=== PATIENT | female | born 1990 | race Caucasian/White ===

== ENCOUNTER 2017-03-05 13:22 | Outpatient (CLI) | payer OTHER ==
[2017-03-05] MEDS ORDERED: NORMAL SALINE 10 ML SYRINGE FLUSH IVP PRN (14:08)
[2017-03-05 14:30] VITALS: RESP 16; TEMP 98.6
[2017-03-05 14:33] LABS: HEMATOCRIT 41.8 % (37.0-47.0); HEMOGLOBIN 14.2 g/dL (12.0-16.0); MEAN CORPUSCULAR HEMOGLOBIN 31.8 PG (27-31); MEAN CORPUSCULAR VOLUME 93.7 FL (81-99); RED BLOOD COUNT 4.46 10^6/uL (4.20-5.40)
[2017-03-05 14:38] LABS: BLOOD UREA NITROGEN 10 mg/dL (7-22); BUN/CREATININE RATIO 16.66 (6-20); EST GLOMERULAR FILTRATION > 60 (>60 ml/min/1.73m(2)); SERUM ALBUMIN 3.5 g/dL (3.5-4.8)
[2017-03-05] MEDS ORDERED: BETAMET ACET/BETAMET NA PH 6 MG/1 ML - 5 ML IM SCH (16:00)
--- NOTE | 2017-03-05 16:02 | DI ---
LIMITED OBSTETRICAL ULTRASOUND FOR BIB, 03/05/2017 2:10 PM: Clinical History: Gestational diabetes. Previous Exam: None at this facility. LMP: 06/24/2016. Scans are obtained in all four quadrants for an amnionic fluid index measurement. The fetus is in nas alice presentation. The BIB is 18.3 which is increased for this stage of (36 weeks 2 days bas ed on the LMP given above). The heart rate is 118 beats per minute. Placenta is anterior corpus and grade 1 Readin. Amnionic fluid index is 18.3 cm. Qualitatively, there is mild polyhydramnios for this stage of pr egnancy. 2. Placenta is anterior corpus and grade 1.
[2017-03-05] MEDS ORDERED: BETAMET ACET/BETAMET NA PH 6 MG/1 ML - 5 ML ONE (16:08)
--- NOTE | 2017-03-06 10:10 | PDOC(PROG) ---
Intake - - Reason for Visit/Chief Complaint: BP Monitoring, NST, Other Additional Reason(s) for Visit: orders received from clinic Admitted From: Physician Office - Estimated Due Date: 03/31/17 Gestational Age in Weeks and Days: 36 Weeks and 3 Days : 1 Para: 0 - Labs Blood Type and Rh: O+ Group B Strep: Unknown Maternal - Vital Signs Last Taken Vital Signs: Vital Signs - Last Taken Temperature 98.6 F 03/05/17 14:08 Pulse Rate 67 03/05/17 14:08 Respiratory Rate 16 03/05/17 14:08 Blood Pressure 134/85 03/05/17 16:00 Pulse Ox 98 03/05/17 14:08 - Uterine Activity Uterine Contraction Monitor Mode: External Contraction Frequency(minutes): uterine irritibility UTD UC - Vaginal Discharge Vaginal Bleeding Amount: None Vaginal Discharge Amount: None Monitoring - Uterine Activity Uterine Contraction Monitor Mode: External Contraction Frequency(minutes): uterine irritibility UTD UC Results - Labs CBC and BMP: 03/05/17 14:24 03/05/17 14:24 Assessment and Plan - Assessment / Plan Additional Assessment/Plan Details: Assessment: IUP 36-2/7 weeks with transfer to care to [facility] and myself on 03/05/2017 after moving here from [place]. The patient had an elevated blood pressure in the clinic and was sent to labor and delivery for blood pressure monitoring but also nonstress test, BIB, and labs. The patient's labs showed hemoconcentration with an H&H of 14 and 41 but normal platelets. Creatinine was 0.6 and AST and ALT were normal. BIB was normal at 18 and reactive nonstress test. In labor and delivery, the patient had 2 elevated blood pressures but not in the severe range. Again, patient has been asymptomatic. No headaches. No right upper quadrant pain. The patient received Celestone 12 mg IM since the patient had an IUP at 36-2/7 weeks and will receive her next dose 24 hours afterwards on 03/06/2017. This is to facilitate with lung maturity in the case that the patient will be delivered within the next week. Plan: The patient was given preeclampsia symptoms and warning signs The patient would return to labor and delivery for blood pressure monitoring, nonstress tests and her second dose of Celestone on 03/06/2017. The patient is collecting a 24 urine for total protein. kick counts and labor precautions The patient expressed understanding with the nurse in labor and delivery. Most likely, induction of labor with cervical ripening around 37 weeks.
== END 2017-03-05 16:25 | disposition home or self-care (01) ==
LOC: MOB LAB 13:22
PROVIDERS: ATTEND Obstetrics & Gynecology
DX: O13.3 Gestational [pregnancy-induced] hypertension without significant proteinuria, third trimester (principal); Z36 Encounter for antenatal screening of mother; Z3A.36 36 weeks gestation of pregnancy
CPT/HCPCS: 36415; 59025; 76815; 80053; 85027; 87150; 96372; 99211; J0702

== ENCOUNTER 2017-03-06 14:43 | Outpatient (CLI) | payer OTHER ==
[2017-03-06] MEDS ORDERED: NORMAL SALINE 10 ML SYRINGE FLUSH IVP PRN (14:51)
[2017-03-06 15:31] VITALS: RESP 16; TEMP 98.6
[2017-03-06] MEDS: BETAMET ACET/BETAMET NA PH 6 MG/1 ML - 5 ML IM SCH (15:45)
--- NOTE | 2017-03-06 15:51 | PDOC(PROG) ---
Intake - - Reason for Visit/Chief Complaint: NST Admitted From: Home - LMP: 07/01/16 Estimated Due Date: 03/31/17 Gestational Age in Weeks and Days: 36 Weeks and 3 Days : 1 Para: 0 - Labs Blood Type and Rh: O+ Group B Strep: Negative Maternal - Vital Signs Last Taken Vital Signs: Vital Signs - Last Taken Temperature 98.6 F 03/06/17 14:40 Pulse Rate 85 03/06/17 14:40 Respiratory Rate 16 03/06/17 14:40 Blood Pressure 139/86 03/06/17 14:40 Pulse Ox 96 03/06/17 14:40 - Vaginal Discharge Vaginal Bleeding Amount: None Vaginal Discharge Amount: None Assessment and Plan - Assessment / Plan Additional Assessment/Plan Details: IUP 36-3/7 weeks who presents today for her second injection of Celestone to complete second dose and then her steroid course will be completed 24 hours after this. The patient presents without headaches or right upper quadrant pain. A nonstress test was completed which was reactive and did show some uterine irritability. The patient's cervix was closed and posterior. Fetus is in cephalic presentation. The patient is in the process of completing a 24-hour urine for total protein. This will be finished tomorrow morning in the patient will bring the urine back. The patient will have an ultrasound today for an estimated weight secondary to the gestational hypertension. After the ultrasound today, the patient will present back for another blood pressure. The patient's initial blood pressure in labor and delivery today was 139/86. Labs yesterday showed hemoconcentration with an H&H of 14 and 41 but otherwise normal renal function and liver function tests. Platelets were normal. kick counts, labor precautions, preeclampsia symptoms discussed with patient. Possible induction of labor next week for gestational hypertension if blood pressures remain elevated. Also, 24-hour urine results are total protein is pending. We did discuss increased risk of section for induction of labor. However, if there is an indication for induction of labor with gestational hypertension or preeclampsia, that risk is possible but severe preeclampsia or eclampsia is more of a possibility and risk. Patient expressed understanding.
--- NOTE | 2017-03-06 20:21 | DI ---
LIMITED OBSTETRICAL ULTRASOUND, 03/06/2017 3:08 PM Clinical History: Gestational hypertension. Previous Exam: 03/05/2017 (for BIB). ADJUSTED LMP: 06/24/2016. There is a single live IUP currently in vertex presentation. Amnionic fluid content is mildly increas ed for this stage of . activity is observed as follows: cardiac and extremity. The crow centa is anterior corpus and Grade 1. heart rate is 116 beats/minute and regular. Distal femora l epiphyses are visualized. BPD, HC, AC, and FL measurements are 92 mm, 344 mm, 336 mm, and 69 mm, re spectively. These measurements correspond to EGA values of 37 weeks 3 days, 39 weeks 6 days, 37 weeks 4 days 35 weeks, and 3 days, respectively. Composite EGA is 37 weeks 4 days. The US EDC is 03/23/2017. EDC by adjusted LMP is 03/31/2017. LMP percentile is 75%. Estimated weight is 3153 g, plus or m inus 460 g. Readin. Single live fetus with vertex presentation. Amniotic fluid content is mildly increased for this s tage of . The BIB performed on 03/05/2017 was 18.3 cm. Placenta is anterior corpus and grade 1. 2. The composite EGA is 37 weeks 4 days with an ultrasound EDC of 03/23/2017. Based on the adjusted LM P date of 06/24/2016, the EDC would be 03/31/2017. 3. LMP percentile is 75%. Estimated weight is 3153 g, plus or minus 460 g.
== END 2017-03-06 16:56 | disposition home or self-care (01) ==
LOC: OBOP 14:43
PROVIDERS: ATTEND Obstetrics & Gynecology
DX: O13.3 Gestational [pregnancy-induced] hypertension without significant proteinuria, third trimester (principal); Z3A.36 36 weeks gestation of pregnancy
CPT/HCPCS: 59025; 76815; 81003; 99211

== ENCOUNTER 2017-03-07 09:01 | Outpatient (CLI) | payer OTHER ==
[2017-03-07 09:42] LABS: 24 HOUR URINE TOTAL VOLUME 5175 ML
[2017-03-07] MEDS ORDERED: NORMAL SALINE 10 ML SYRINGE FLUSH IVP PRN (09:46)
[2017-03-07 10:00] VITALS: RESP 18; TEMP 98.3
[2017-03-07 10:15] LABS: HEMATOCRIT 38.9 % (37.0-47.0); HEMOGLOBIN 13.3 g/dL (12.0-16.0); MEAN CORPUSCULAR HEMOGLOBIN 31.8 PG (27-31); MEAN CORPUSCULAR HGB CONC 34.2 g/dL (33-37); MEAN CORPUSCULAR VOLUME 93.1 FL (81-99); MEAN PLATELET VOLUME 11.2 FL (7.4-12.2); RED BLOOD COUNT 4.18 10^6/uL (4.20-5.40)
[2017-03-07 10:18] LABS: BLOOD UREA NITROGEN 9 mg/dL (7-22); CALCIUM 9.3 mg/dL (8.7-10.7); EST GLOMERULAR FILTRATION > 60 (>60 ml/min/1.73m(2)); SERUM ALBUMIN 3.3 g/dL (3.5-4.8)
--- NOTE | 2017-03-07 11:15 | PDOC(PROG) ---
Intake - - Reason for Visit/Chief Complaint: BP Monitoring, Headache Admitted From: Home - Estimated Due Date: 03/31/17 Gestational Age in Weeks and Days: 36 Weeks and 4 Days : 1 Para: 0 - Labs Blood Type and Rh: O+ Maternal - Vital Signs Last Taken Vital Signs: Vital Signs - Last Taken Temperature 98.3 F 03/07/17 09:46 Pulse Rate 65 03/07/17 10:30 Respiratory Rate 18 03/07/17 09:46 Blood Pressure 120/79 03/07/17 10:30 Pulse Ox 98 03/07/17 09:46 - Uterine Activity Uterine Contraction Monitor Mode: External Contraction Frequency(minutes): irritability Uterine Tone Measurement Phase: Resting - Vaginal Discharge Vaginal Bleeding Amount: None Monitoring - Uterine Activity Uterine Contraction Monitor Mode: External Contraction Frequency(minutes): irritability Uterine Tone Measurement Phase: Resting Results - Labs CBC and BMP: 03/07/17 09:50 03/07/17 09:50 Assessment and Plan - Assessment / Plan Additional Assessment/Plan Details: IUP 36-4/7 weeks with slightly elevated blood pressures. Labs today show 24 urine total protein was 931 mg in 24 hours which is elevated. Liver function tests, creatinine were normal. Mild hemoconcentration at 13 and 38. Platelets were normal. Reactive nonstress test. Patient presented today to submit her 24 urine for total protein. The patient mentioned that since yesterday morning she has had intermittent headaches that resolve spontaneously without Tylenol. She feels more that her headaches are sinus etiology. The patient currently does not have a headache. Blood pressures today with one diastolic of 89 but no blood pressures 140/90 or above. Reactive nonstress test. Plan: Patient will return on Friday with an IUP at 37 weeks for nonstress tests , CBC, CMP, blood pressure checks and then a cervical check. We discussed induction of labor with cervical ripening which may start on Friday , 03/10/2017. If the patient's cervix is completely nonfavorable and the patient's blood pressures are not elevated and the labs are completely normal and a nonstress test is reactive, we may wait a couple days but I would prefer for cervical ripening and induction of labor to begin at 37 weeks. We did discuss the increased risk of section with induction of labor. We also discussed induction of labor with cervical ripening with Cytotec. Patient expressed understanding. Precautions for over the weekend. Return for decreased movement, leak of fluid, preeclampsia symptoms, etc. Patient expressed understanding. Patient is comfortable going home. She lives an hour away. The patient will call for any questions. Patient will be on decreased activity at home with couch rest intermittently. The patient does develop a headache, patient will take Tylenol and determine if this helps resolve her headache.
== END 2017-03-07 11:30 | disposition home or self-care (01) ==
LOC: LAB 09:01
PROVIDERS: ATTEND Obstetrics & Gynecology
DX: O13.3 Gestational [pregnancy-induced] hypertension without significant proteinuria, third trimester (principal); O26.893 Other specified pregnancy related conditions, third trimester; R51 Headache; Z3A.36 36 weeks gestation of pregnancy
CPT/HCPCS: 36415; 59025; 80053; 84156; 85027; 99211

== ENCOUNTER 2017-03-10 10:15 | Inpatient (IN) | payer OTHER ==
[2017-03-10 10:38] LABS: HEMATOCRIT 40.9 % (37.0-47.0); HEMOGLOBIN 14.1 g/dL (12.0-16.0); MEAN CORPUSCULAR HEMOGLOBIN 32.2 PG (27-31); MEAN CORPUSCULAR HGB CONC 34.5 g/dL (33-37); MEAN CORPUSCULAR VOLUME 93.4 FL (81-99); MEAN PLATELET VOLUME 11.2 FL (7.4-12.2); RED BLOOD COUNT 4.38 10^6/uL (4.20-5.40)
[2017-03-10 11:06] LABS: BLOOD UREA NITROGEN 11 mg/dL (7-22); BUN/CREATININE RATIO 18.33 (6-20); CALCIUM 9.1 mg/dL (8.7-10.7); EST GLOMERULAR FILTRATION > 60 (>60 ml/min/1.73m(2)); SERUM ALBUMIN 3.4 g/dL (3.5-4.8)
[2017-03-10] MEDS ORDERED: CITRIC ACID/SODIUM CITRATE 30 ML CUP PO PRN (12:39)
[2017-03-10] MEDS ORDERED: NALOXONE 0.4 MG/1 ML VIAL IVP PRN (12:39)
[2017-03-10] MEDS ORDERED: ePHEDrine Inj 5 MG in Normal Saline Flush 1 ML IVP PRN (12:39)
[2017-03-10] MEDS ORDERED: METHYLERGONOVINE MALEATE 0.2 MG/1 ML VIAL IM PRN (12:39)
[2017-03-10] MEDS ORDERED: Phenylephrine Inj 50 MCG in Normal Saline Flush 0.5 ML IVP PRN (12:39)
[2017-03-10] MEDS ORDERED: CALCIUM CARBONATE 500 MG (TUMS) CHEWABLE TABLET PO PRN (12:39)
[2017-03-10] MEDS ORDERED: BUTORPHANOL TARTRATE 2 MG/1 ML VIAL IVP PRN (12:39)
[2017-03-10] MEDS ORDERED: Lidocaine 1% 10 MG/ML - 20 ML VIAL SUBCUT PRN (12:39)
[2017-03-10] MEDS ORDERED: Naloxone Inj 0.01 MG in Normal Saline Flush 1 ML IVP PRN (12:39)
[2017-03-10] MEDS ORDERED: Metoclopramide Inj 10 MG/2 ML VIAL IV PRN (12:39)
[2017-03-10] MEDS ORDERED: Nalbuphine Inj 20 MG/ML Ampule IVP PRN (12:39)
[2017-03-10] MEDS ORDERED: MISOPROSTOL 200 MCG TABLET RECTAL PRN (12:39)
[2017-03-10] MEDS ORDERED: TERBUTALINE SULFATE 1 MG/1 ML SDV SUBCUT PRN (12:39)
[2017-03-10] MEDS ORDERED: ONDANSETRON 4 MG/2 ML VIAL IVP PRN (12:39)
[2017-03-10] MEDS ORDERED: Carboprost Inj 250 MCG/ML AMP IM PRN (12:39)
[2017-03-10] MEDS ORDERED: LIDOCAINE W/ SODIUM BICARB 0.5 ML SYR SUBD PRN (12:39)
[2017-03-10] MEDS ORDERED: OXYTOCIN 10 UNIT/1 ML IM PRN (12:39)
[2017-03-10] MEDS ORDERED: Famotidine Inj 20 MG in Normal Saline Flush 10 ML IVP PRN ×4 (12:39)
[2017-03-10] MEDS ORDERED: CefOXitin Inj 2 GM in Sodium Chloride 0.9% 100 ML IV PRN (12:39)
[2017-03-10] MEDS ORDERED: diphenhydrAMINE 50 MG/1 ML VIAL IVP PRN (12:39)
[2017-03-10] MEDS ORDERED: fentaNYL Inj 100 MCG/2 ML VIAL IV PRN (12:39)
[2017-03-10] MEDS ORDERED: Oxytocin 20 Units + LR 1,000 ML IV SCH (12:45)
--- NOTE | 2017-03-10 12:48 | OB.PROGRES ---
Interval History: Patient is a 26-year-old with a clemente IUP at 37 weeks gestation who I met last week for the first time when she moved here from [place]. The patient' s has essentially been uncomplicated until last week. Normal Glucola. Labs normal. Last week when she saw me her blood pressure was slightly elevated with a systolic of 141 and 143 and a diastolic in the 80s. The patient was sent to labor and delivery and was found to have continued elevated blood pressures that were mildly elevated. Otherwise asymptomatic. Labs were drawn and were normal except for mild hemoconcentration with an H&H of 14 and 41. Creatinine was 0.6. Steroids for lung maturity were offered and administered-12 mg IM of Celestone 2 doses 24 hours apart. Repeat blood pressures the next day had a systolic blood pressure of 139 a couple of times but nothing 140/90 or above. The next day the patient submitted her 24 hour urine for total protein and she was complaining of intermittent mild headaches that resolve spontaneously. The patient again had blood pressures that were systolic in the high 130s over 80s that nothing over 140/90. The patient was found to have proteinuria with 931 mg of protein in 24 hours. Her urine volume was greater than 5000 mL. The patient presented today for follow-up labs a nonstress test and blood pressure checks. The patient states that she has had intermittent headaches over the weekend but she did not have to take Tylenol and the headaches resolve spontaneously. No other problems. Positive movement, no leak of fluid, no bleeding. Group B strep was negative from last week Past medical history significant for depression with the patient taking sertraline Past surgical history noncontributory No known drug allergies Objective - Cervical Exam Cervical Exam: 140/-2 cephalic. Cervix was soft. Membranes were swept. There was blood on my glove after sweeping the membranes gently. Patient has an anterior placenta by ultrasound. Membranes could be palpated [place]: Irritability occasionally Heart Rate Interpretation Category: Category I - Labs CBC and BMP: 03/10/17 10:16 03/10/17 10:16 Labs - Last 24 Hours: Laboratory Results 03/10/17 Range/Units 10:16 WBC 12.68 H (4.8-10.8) 10^3/uL RBC 4.38 (4.20-5.40) 10^6/uL Hgb 14.1 (12.0-16.0) g/dL Hct 40.9 (37.0-47.0) % MCV 93.4 (81-99) FL MCH 32.2 H (27-31) PG MCHC 34.5 (33-37) g/dL RDW Std Deviation 44.7 (39-50) fL RDW Coeff of Henry 13.6 (11.5-14.5) % Plt Count 267 (140-350) 10*3/uL MPV 11.2 (7.4-12.2) FL Sodium 134 L (135-145) meq/L Potassium 3.6 L (3.8-5.2) meq/L Chloride 105 (98-112) meq/L Carbon Dioxide 21 L (23-33) meq/L Anion Gap 8 (5-20) BUN 11 (7-22) mg/dL Creatinine 0.6 (0.50-1.20) mg/dL Estimated GFR > 60 (>60 ml/min/1.73m(2)) BUN/Creatinine Ratio 18.33 (6-20) Glucose 112 H (78-110) mg/dL Calculated Osmolality 277.0 (267-292) mOsm/kg Calcium 9.1 (8.7-10.7) mg/dL Total Bilirubin 0.2 L (0.3-1.2) mg/dL AST 18 (8-39) IU/L ALT 33 (9-52) IU/L Alkaline Phosphatase 139 H (38-126) IU/L Total Protein 6.5 (6.1-8.0) g/dL Albumin 3.4 L (3.5-4.8) g/dL Globulin 3.1 (2.50-4.10) g/dL Albumin/Globulin Ratio 1.00 L (1.3-2.0) mg/g - Vital Signs Last Taken Vital Signs: Vital Signs - Last Taken Temperature 98.8 F 03/10/17 10:18 Pulse Rate 84 03/10/17 10:24 Respiratory Rate 18 03/10/17 10:18 Blood Pressure 136/84 03/10/17 10:24 Pulse Ox 95 03/10/17 10:24 - Additional Details Additional Details: Lungs clear to auscultation Heart regular rate and rhythm Reflexes 3+ bilaterally patellar reflexes No clonus bilaterally patellar region Assessment and Plan - Assessment / Plan Additional Assessment/Plan Details: Assessment: IUP 37 weeks with preeclampsia without signs or symptoms of severe preeclampsia. Patient with proteinuria with 931 mg of protein in a 24-hour urine. Today, the patient's blood pressures were normal but higher normal and then there was one blood pressure of 146/86, 138/92 and there was one other blood pressure with a diastolic of 93. Patient is asymptomatic except for slight intermittent headaches which resolve spontaneously. Patient's blood work today shows normal creatinine and normal liver function tests. Mild hemoconcentration with an H&H of 14 and 40.9. Platelets were normal. Group B strep is negative. With checking the patient's cervix today and gentle membrane sweeping, there was some blood on my glove. The cervix may be friable. The patient has an anterior placenta. There was not continued bleeding. Plan: We have discussed induction of labor with cervical ripening with Cytotec 25 g. The patient only had some cereal for breakfast. She will have a half a sandwich now and then an IV will be started and then Cytotec will be administered for cervical ripening. We have discussed the off label use for Cytotec and the fact that it is been studied for the past 25 years by [employer] and we use a low dose for cervical ripening. We also discussed that with induction of labor there is an rate. The goal is to ripen the patient 's cervix slowly to allow the patient to go into labor. Hopefully, the patient will have a vaginal delivery. However, we did discuss indications for a section such as arrest of dilation, arrest of descent, and nonreassuring status. Also there are other indications for a section that may occur during the process. Patient expressed understanding. Additionally, her expressed understanding.
[2017-03-10] MEDS ORDERED: Zolpidem Tab 5 MG TAB PO PRN (12:57)
[2017-03-10] MEDS: Lactated Ringers-OB Dept 1,000 ML PRIMARY IV SCH (16:15)
--- NOTE | 2017-03-10 16:17 | OB.PROGRES ---
Interval History: Patient was able to eat a little bit for lunch. IV has been started. She can feel some cramping. Objective - Cervical Exam Cervical Exam: Deferred [place]: Contractions every 3 minutes Heart Rate Interpretation Category: Category I - Labs CBC and BMP: 03/10/17 10:16 03/10/17 10:16 Labs - Last 24 Hours: Laboratory Results 03/10/17 03/10/17 Range/Units 10:15 10:16 WBC 12.68 H (4.8-10.8) 10^3/uL RBC 4.38 (4.20-5.40) 10^6/uL Hgb 14.1 (12.0-16.0) g/dL Hct 40.9 (37.0-47.0) % MCV 93.4 (81-99) FL MCH 32.2 H (27-31) PG MCHC 34.5 (33-37) g/dL RDW Std Deviation 44.7 (39-50) fL RDW Coeff of Henry 13.6 (11.5-14.5) % Plt Count 267 (140-350) 10*3/uL MPV 11.2 (7.4-12.2) FL Sodium 134 L (135-145) meq/L Potassium 3.6 L (3.8-5.2) meq/L Chloride 105 (98-112) meq/L Carbon Dioxide 21 L (23-33) meq/L Anion Gap 8 (5-20) BUN 11 (7-22) mg/dL Creatinine 0.6 (0.50-1.20) mg/dL Estimated GFR > 60 (>60 ml/min/1.73m(2)) BUN/Creatinine Ratio 18.33 (6-20) Glucose 112 H (78-110) mg/dL Calculated Osmolality 277.0 (267-292) mOsm/kg Calcium 9.1 (8.7-10.7) mg/dL Total Bilirubin 0.2 L (0.3-1.2) mg/dL AST 18 (8-39) IU/L ALT 33 (9-52) IU/L Alkaline Phosphatase 139 H (38-126) IU/L Total Protein 6.5 (6.1-8.0) g/dL Albumin 3.4 L (3.5-4.8) g/dL Globulin 3.1 (2.50-4.10) g/dL Albumin/Globulin Ratio 1.00 L (1.3-2.0) mg/g Blood Type O POSITIVE Antibody Screen Negative - Vital Signs Last Taken Vital Signs: Vital Signs - Last Taken Temperature 98.8 F 03/10/17 10:18 Pulse Rate 84 03/10/17 10:24 Respiratory Rate 18 03/10/17 10:18 Blood Pressure 136/84 03/10/17 10:24 Pulse Ox 95 03/10/17 10:24 Assessment and Plan - Assessment / Plan Additional Assessment/Plan Details: Assessment: IUP 37 weeks with preeclampsia without signs or symptoms of severe preeclampsia. Patient is now sarah mildly status post cervical check and gentle membrane sweeping. Plan: Cytotec cervical ripening will be held currently secondary to contractions Pitocin cervical ripening starting at 2 milliunits and then increasing. If patient feels contractions, we'll stop them around 2300 hrs. tonight and restart early in the morning if contractions are continuing. If contractions resolve overnight, we may be able to use Cytotec for cervical ripening in the morning. Continue to evaluate closely.
[2017-03-10] MEDS: Oxytocin 20 Units + LR 1,000 ML IV SCH (16:25)
--- NOTE | 2017-03-10 21:39 | OB.PROGRES ---
Interval History: Patient can feel contractions with Pitocin. Patient does not believe she would be able to sleep through these contractions. No gush of fluid. Positive movement. No active bleeding but some old dark blood from the previous cervical check. Objective - Cervical Exam Cervical Exam: 1-/-3 cephalic by nurses check a little while ago Elaine: Contractions every 2-3 on 6 milliunits of Pitocin Heart Rate Interpretation Category: Category I - Labs CBC and BMP: 03/10/17 10:16 03/10/17 10:16 Labs - Last 24 Hours: Laboratory Results 03/10/17 03/10/17 Range/Units 10:15 10:16 WBC 12.68 H (4.8-10.8) 10^3/uL RBC 4.38 (4.20-5.40) 10^6/uL Hgb 14.1 (12.0-16.0) g/dL Hct 40.9 (37.0-47.0) % MCV 93.4 (81-99) FL MCH 32.2 H (27-31) PG MCHC 34.5 (33-37) g/dL RDW Std Deviation 44.7 (39-50) fL RDW Coeff of Henry 13.6 (11.5-14.5) % Plt Count 267 (140-350) 10*3/uL MPV 11.2 (7.4-12.2) FL Sodium 134 L (135-145) meq/L Potassium 3.6 L (3.8-5.2) meq/L Chloride 105 (98-112) meq/L Carbon Dioxide 21 L (23-33) meq/L Anion Gap 8 (5-20) BUN 11 (7-22) mg/dL Creatinine 0.6 (0.50-1.20) mg/dL Estimated GFR > 60 (>60 ml/min/1.73m(2)) BUN/Creatinine Ratio 18.33 (6-20) Glucose 112 H (78-110) mg/dL Calculated Osmolality 277.0 (267-292) mOsm/kg Calcium 9.1 (8.7-10.7) mg/dL Total Bilirubin 0.2 L (0.3-1.2) mg/dL AST 18 (8-39) IU/L ALT 33 (9-52) IU/L Alkaline Phosphatase 139 H (38-126) IU/L Total Protein 6.5 (6.1-8.0) g/dL Albumin 3.4 L (3.5-4.8) g/dL Globulin 3.1 (2.50-4.10) g/dL Albumin/Globulin Ratio 1.00 L (1.3-2.0) mg/g Blood Type O POSITIVE Antibody Screen Negative - Vital Signs Last Taken Vital Signs: Vital Signs - Last Taken Temperature 98.2 F 03/10/17 19:00 Pulse Rate 73 03/10/17 21:00 Respiratory Rate 20 03/10/17 19:00 Blood Pressure 128/78 03/10/17 21:00 Pulse Ox 96 03/10/17 20:00 Assessment and Plan - Assessment / Plan Additional Assessment/Plan Details: Assessment: IUP 37 weeks with preeclampsia without signs or symptoms of severe preeclampsia. Patient with few elevated blood pressures. Patient with significant proteinuria 931 mg. Patient without headache or right upper quadrant pain. Plan: We'll stop Pitocin at 2300 hrs. If contractions decrease in frequency, patient may eat something and then rest. If contractions decrease enough, Cytotec will be administered in the morning for cervical ripening. If contractions are still occurring, Pitocin augmentation. This plan has been discussed with the patient and with the nurse. Hydroxyzine or Atarax 25 mg at 2200 hrs. this evening by mouth to help the patient's sleep.
[2017-03-10] MEDS ORDERED: HYDROXYZINE PAMOATE 25 MG CAPSULE PO ONE (22:00)
--- NOTE | 2017-03-11 07:38 | OB.PROGRES ---
Interval History: The patient was able to sleep. She took a shower this morning and is ready for cervical ripening again. Her contractions resolved. Objective - Cervical Exam Cervical Exam: Cervix was the same this morning when the nurse checked the patient. Unfortunately, the nurse stated the baby's head was too high to determine whether or not the baby was in the cephalic presentation. [place]: Intermittent contraction. No regular contractions Heart Rate Interpretation Category: Category I - Labs CBC and BMP: 03/10/17 10:16 03/10/17 10:16 Labs - Last 24 Hours: Laboratory Results 03/10/17 03/10/17 Range/Units 10:15 10:16 WBC 12.68 H (4.8-10.8) 10^3/uL RBC 4.38 (4.20-5.40) 10^6/uL Hgb 14.1 (12.0-16.0) g/dL Hct 40.9 (37.0-47.0) % MCV 93.4 (81-99) FL MCH 32.2 H (27-31) PG MCHC 34.5 (33-37) g/dL RDW Std Deviation 44.7 (39-50) fL RDW Coeff of Henry 13.6 (11.5-14.5) % Plt Count 267 (140-350) 10*3/uL MPV 11.2 (7.4-12.2) FL Sodium 134 L (135-145) meq/L Potassium 3.6 L (3.8-5.2) meq/L Chloride 105 (98-112) meq/L Carbon Dioxide 21 L (23-33) meq/L Anion Gap 8 (5-20) BUN 11 (7-22) mg/dL Creatinine 0.6 (0.50-1.20) mg/dL Estimated GFR > 60 (>60 ml/min/1.73m(2)) BUN/Creatinine Ratio 18.33 (6-20) Glucose 112 H (78-110) mg/dL Calculated Osmolality 277.0 (267-292) mOsm/kg Calcium 9.1 (8.7-10.7) mg/dL Total Bilirubin 0.2 L (0.3-1.2) mg/dL AST 18 (8-39) IU/L ALT 33 (9-52) IU/L Alkaline Phosphatase 139 H (38-126) IU/L Total Protein 6.5 (6.1-8.0) g/dL Albumin 3.4 L (3.5-4.8) g/dL Globulin 3.1 (2.50-4.10) g/dL Albumin/Globulin Ratio 1.00 L (1.3-2.0) mg/g Blood Type O POSITIVE Antibody Screen Negative - Vital Signs Last Taken Vital Signs: Vital Signs - Last Taken Temperature 99.2 F 03/11/17 07:00 Pulse Rate 101 H 03/11/17 07:00 Respiratory Rate 18 03/11/17 07:00 Blood Pressure 123/81 03/11/17 07:00 Pulse Ox 100 03/11/17 07:00 - Additional Details Additional Details: Limited transabdominal ultrasound shows the baby to be in the cephalic presentation. Assessment and Plan - Assessment / Plan Additional Assessment/Plan Details: Assessment: IUP 37-1/7 week with preeclampsia without signs or symptoms of severe preeclampsia. Protein with 931 mg of protein in 24 hours. Cervix is unchanged. Cervical ripening was not completed with Cytotec yesterday since patient was sarah after cervical check and membrane sweeping. Pitocin cervical ripening was completed for about 8 hours yesterday. Plan: Cytotec cervical ripening 25 g initially. Continue to observe blood pressures. Highest diastolic blood pressure was 105. Most blood pressures have been less than 140/90. Continue to observe closely. The patient expressed understanding with today's plan.
[2017-03-11] MEDS: Lactated Ringers-OB Dept 1,000 ML PRIMARY IV SCH ×3 (07:45→17:23)
[2017-03-11] MEDS: NORMAL SALINE 10 ML SYRINGE FLUSH IVP PRN ×2 (07:48→12:57)
[2017-03-11] MEDS: Misoprostol Tab 100 MCG TAB VAGINAL PRN ×2 (07:51→12:40)
--- NOTE | 2017-03-11 12:59 | OB.PROGRES ---
Interval History: The patient had a Cytotec placed earlier this morning and did not feel a lot of cramping after the placement for the next several hours. Positive movement. The patient has walk some. Objective - Cervical Exam Cervical Exam: tight 3 cm/50/-3 cephalic [place]: No regular contractions on monitor Heart Rate Interpretation Category: Category I - Labs CBC and BMP: 03/10/17 10:16 03/10/17 10:16 Labs - Last 24 Hours: Laboratory Results 03/10/17 Range/Units 10:15 Blood Type O POSITIVE Antibody Screen Negative - Vital Signs Last Taken Vital Signs: Vital Signs - Last Taken Temperature 99.2 F 03/11/17 10:00 Pulse Rate 80 03/11/17 10:46 Respiratory Rate 20 03/11/17 10:00 Blood Pressure 141/93 03/11/17 10:46 Pulse Ox 96 03/11/17 10:00 Assessment and Plan - Assessment / Plan Additional Assessment/Plan Details: IUP 37-1/7 week with preeclampsia without signs or symptoms of severe preeclampsia There has been some cervical change with the Pitocin yesterday and Cytotec this morning. The baby's head is still high. Plan: Cytotec-about 35 g per vagina was placed. This was a quarter of 100 g tablet plus a little less than half of another quarter of a tablet. Observe the patient closely for cramping and contractions. If this dose of Cytotec does not cause significant cramping or contractions, and there is no significant cervical change, consider 50 g of Cytotec at next application. Patient expressed understanding.
[2017-03-11] MEDS: Oxytocin 20 Units + LR 1,000 ML IV SCH (17:23)
--- NOTE | 2017-03-11 19:06 | OB.PROGRES ---
Interval History: The patient received her second dose of Cytotec just before 1300 hrs. this afternoon. She has been feeling some cramping and then contractions. She was sitting on the labor ball and she spontaneously ruptured her membranes with clear fluid. The patient can feel contractions. Objective - Cervical Exam Cervical Exam: 3/75/-2 cephalic. Cervix slightly thicker on the patient's right side compared to the left. The left side was 75% effaced. Clear fluid with exam. No blood. [place]: Patient was just placed back on the monitor. Patient has been sarah every 2-3 minutes. Heart Rate Interpretation Category: Category I - Labs CBC and BMP: 03/10/17 10:16 03/10/17 10:16 - Vital Signs Last Taken Vital Signs: Vital Signs - Last Taken Temperature 99.0 F 03/11/17 16:45 Pulse Rate 77 03/11/17 13:15 Respiratory Rate 20 03/11/17 16:45 Blood Pressure 134/79 03/11/17 16:45 Pulse Ox 96 03/11/17 10:00 - Additional Details Additional Details: Abdomen is gravid, soft, no guarding or rebound Assessment and Plan - Assessment / Plan Additional Assessment/Plan Details: Assessment: IUP 37-1/7 weeks with preeclampsia without signs or symptoms of severe preeclampsia. Spontaneous rupture of membranes-clear fluid Blood pressures and essentially been normal. One blood pressure this morning of 141/93. Cervix has ripened somewhat over the past 24 hours. There has been cervical change and some descent of the baby's head. Plan: Continue to observe Pitocin augmentation of contractions decrease Consider IUPC the cervix is not changing I would like to check a CBC and CMP since she has not had labs since yesterday morning. Observe closely
[2017-03-11 20:23] LABS: BASOPHILS % (AUTO) 0.5 % (0-1); EOSINOPHILS % (AUTO) 0.4 % (0-8); HEMATOCRIT 42.7 % (37.0-47.0); HEMOGLOBIN 14.7 g/dL (12.0-16.0); LYMPHOCYTES # (AUTO) 2.28 10*3/uL; MEAN CORPUSCULAR HEMOGLOBIN 32.1 PG (27-31); MEAN CORPUSCULAR HGB CONC 34.4 g/dL (33-37); MEAN CORPUSCULAR VOLUME 93.2 FL (81-99); MEAN PLATELET VOLUME 11.1 FL (7.4-12.2); MONOCYTES # (AUTO) 1.19 10*3/UL (0.3-0.8); MONOCYTES % (AUTO) 7.8 % (5-15); NEUTROPHILS # (AUTO) 11.54 10*3/UL; NEUTROPHILS % (AUTO) 75.6 % (50-80); RED BLOOD COUNT 4.58 10^6/uL (4.20-5.40)
[2017-03-11 20:24] LABS: BASOPHILS # (AUTO) 0.07 10*3/UL; EOSINOPHILS # (AUTO) 0.06 10*3/UL; PLATELET MORPHOLOGY COMMENT NORMAL MORPHOLOGY (NORM); RBC MORPHOLOGY COMMENT NORMAL MORPHOLOGY (NORM); WBC MORPHOLOGY COMMENT NORMAL MORPHOLOGY (NORM)
[2017-03-11 20:32] LABS: BLOOD UREA NITROGEN 10 mg/dL (7-22); BUN/CREATININE RATIO 14.28 (6-20); CALCIUM 9.4 mg/dL (8.7-10.7); EST GLOMERULAR FILTRATION > 60 (>60 ml/min/1.73m(2)); SERUM ALBUMIN 3.8 g/dL (3.5-4.8)
[2017-03-12] MEDS ORDERED: Sodium Chloride 0.9% 1,000 ML ONE (00:16)
--- NOTE | 2017-03-12 01:17 | OB.OP.NOTE ---
Operative Report Surgeon: Geovanny Anesthesia Type: Local (For medial lateral episiotomy) Surgery Date: 03/11/17 Preoperative Diagnosis: IUP 37-1/7 week. Preeclampsia without signs or symptoms of severe preeclampsia. Proteinuria with 931 mg of protein in 24 hours. Induction of labor with cervical ripening with Pitocin, Cytotec 2 doses. Perineum not pliable requiring episiotomy for vaginal delivery Postoperative Diagnosis: Same Procedure: Cervical ripening with Pitocin. Cervical ripening with Cytotec 2 doses. Medial lateral episiotomy after local anesthetic injected into the posterior fourchette. Spontaneous vaginal delivery. Nuchal cord 1 reduced on perineum. Delayed cord clamping 45 seconds. Spontaneous delivery of placenta. Repair of medial lateral episiotomy. Repair of left superior superficial vaginal laceration Estimated Blood Loss (mL): 350 Complications: None apparent Findings at Surgery: Male Apgars 9 and 9 Weight 7 pounds ABG showed a pH of 7.413, PCO2 of 29.7, HCO3 of 19, base excess -6 Nuchal cord 1 reduced on perineum Medial lateral episiotomy without extension Indications for the Procedure: Patient is a 26-year-old G1 now P1 who presented at 36-2/7 weeks to [facility] with mildly increased blood pressures. 24 hour urine showed 931 mg of protein The patient did receive a complete course of Celestone for lung maturation at 36+ weeks At 37 weeks gestation, induction of labor with cervical ripening was suggested and offered to the patient. Patient agreed. Patient underwent cervical ripening initially with Pitocin since patient had cervical exam and then was sarah after gentle membrane sweeping. The next morning, there were no contractions and Cytotec was administered for cervical ripening. A second dose was administered just before 1300 hrs. on . The patient then proceeded to go into active labor. The patient got to complete and a spontaneous vaginal delivery ensued. Description of Procedure: The patient pushed during the second stage of labor for less than one hour. The patient slowly brought the baby's head down to the perineum. With the patient continuing to push, the patient's perineum was noted to not be as pliable and the head would not fit through the peritoneum without a stellate laceration occurring. Secondary to the distance between the posterior fourchette and the sphincter and the anus, a medial lateral episiotomy was discussed with the patient. Since the patient did not have any pain medication or epidural, a local anesthetic of Xylocaine was injected into her perineum. Then a medial lateral episiotomy on the patient's right side was incised. The patient pushed about 3 more times and then delivered in the usual fashion the baby's head in the OA presentation. A nuchal cord was noted and reduced on the perineum. The mouth and nose were bulb suctioned. The anterior shoulder was then delivered and then the posterior shoulder and then the infant was delivered atraumatically. The baby was brought to the mother's chest. Delayed cord clamping 45 seconds was allowed for. The baby had a lusty cry. The cord was then clamped and cut. A section of cord was obtained for cord gases. Then cord blood was obtained. The placenta was then delivered several minutes later spontaneously and intact. The placenta was examined later and appeared intact. Three-vessel cord. The patient's perineum was examined and there did not appear to be an extension of the medial lateral episiotomy into the sphincter. There is also a laceration of the left vaginal wall superiorly that was bleeding a small amount. I performed a rectal exam and the sphincter was circumferential and the patient was able to squeeze my finger and the sphincter was intact. I did use 0 Vicryl suture in 2 [id number] sutures to reinforce the sphincter. Rectal exam was completed again and there was no suture in the rectum. I then used 3-0 Rapide suture to close the medial lateral episiotomy starting inside the introitus inside the hymenal ring at the apex of the laceration. I then closed the vaginal laceration in a running locking suture and then in the usual fashion brought my suture to the perineum and then closed the deeper perineum and then tied and not and then continued to close the perineum and then did a subcuticular suture along the superficial perineum and then go back into the vagina with my needle and then 1 more suture and then a knot was tied. I closed the left superior superficial vaginal laceration with 3-0 repeat suture interrupted 5 sutures. It should be noted that I could not visualize the cervix during the repair and there was not significant bleeding. A rectal exam was completed one more time. The sphincter was intact and there was no suture noted. I would like to note that every time a rectal exam was completed, gloves were changed. At the end of the procedure, sponge and needle counts were correct 2. The patient's perineum was cleaned and the patient and her baby would recuperate in the delivery room. The patient's blood pressures will be observed since she does have preeclampsia without signs or symptoms of severe preeclampsia. The patient did have one diastolic blood pressure of 95. Findings were a male with Apgars 9 and 9 with a weight of 7 pounds. ABG showed a pH is 7.413, PCO2 of 29.7, HCO3 of 19.0, and a base excess of -6. Plan: The patient's blood pressures will be observed. Labs on day #1 unless blood pressures increase significantly. Mother and baby will recuperate and recover in the delivery room for a room.
[2017-03-12] MEDS ORDERED: ACETAMINOPHEN 325 MG TABLET PO PRN (05:13)
[2017-03-12] MEDS ORDERED: Ondansetron ODT Tab 4 MG TAB PO PRN (05:13)
[2017-03-12] MEDS ORDERED: MISOPROSTOL 200 MCG TABLET RECTAL ONE (05:13)
[2017-03-12] MEDS ORDERED: Oxytocin 20 Units + LR 1,000 ML IV SCH (05:13)
[2017-03-12] MEDS ORDERED: GLYCERIN/WITCH HAZEL 1 BOX TOPICAL PRN (05:13)
[2017-03-12] MEDS ORDERED: HYDROcodone-APAP 5 MG -325 MG TABLET PO PRN (05:13)
[2017-03-12] MEDS ORDERED: Nalbuphine Inj 20 MG/ML Ampule IVP PRN (05:13)
[2017-03-12] MEDS ORDERED: DIPH,PERTUSS,TET(ADACEL) VAC/PF 0.5 ML (Tdap) IM ONE (05:13)
[2017-03-12] MEDS ORDERED: LANOLIN HPA 40 GM TUBE TOPICAL PRN (05:13)
[2017-03-12] MEDS ORDERED: diphenhydrAMINE 25 MG CAPSULE PO PRN (05:13)
[2017-03-12] MEDS ORDERED: ONDANSETRON 4 MG/2 ML VIAL IVP PRN (05:13)
[2017-03-12] MEDS ORDERED: diphenhydrAMINE 50 MG/1 ML VIAL IVP PRN (05:13)
[2017-03-12] MEDS ORDERED: OXYTOCIN 10 UNIT/1 ML IM ONE (05:13)
[2017-03-12] MEDS ORDERED: Carboprost Inj 250 MCG/ML AMP IM PRN (05:13)
[2017-03-12] MEDS ORDERED: CALCIUM CARBONATE 500 MG (TUMS) CHEWABLE TABLET PO PRN (05:13)
[2017-03-12] MEDS ORDERED: BENZOCAINE/MENTHOL SPRAY 56 GM BOTTLE TOPICAL PRN (05:13)
[2017-03-12] MEDS ORDERED: KETOROLAC 15 MG/1 ML VIAL IVP SCH (06:00)
[2017-03-12] MEDS: NORMAL SALINE 10 ML SYRINGE FLUSH IVP PRN ×2 (08:39→08:41)
[2017-03-12] MEDS: DOCUSATE 100 MG CAPSULE PO SCH ×2 (09:00→20:33)
[2017-03-12] MEDS: Lactated Ringers-OB Dept 1,000 ML PRIMARY IV SCH (12:07)
[2017-03-12] MEDS: IBUPROFEN 800 MG TABLET PO PRN (15:44)
--- NOTE | 2017-03-12 16:47 | OB.PROGRES ---
Subjective Post Day: 1 Pain Management: PO Smith Catheter: No Flatus: Yes Diet: Regular [place] Feeding Method: Exculsively Ambulating: Yes Concerns / Additional Information: Patient states that she has been up and around. Breast-feeding well. She feels well. No headache. No right upper quadrant pain. Bleeding is still present. Nurse called it small to moderate. Objective - General General Appearance: POSITIVE: No Acute Distress, Cooperative - Cardiovacular Cardiovascular Exam: POSITIVE: RRR Edema: No Pedal Edema (To trace edema) Extremities: Negative Adelaida's - Bilaterally - Respiratory Respiratory Exam: POSITIVE: Clear to Auscultation - Bilaterally - Fundus/Lochia/Perineum Uterus Consistency: Firm Uterus Position: POSITIVE: Below Umbilicus Assesstment / Plan Assessment / Plan: Assessment: day #1 status post continuous vaginal delivery over a medial lateral episiotomy and then repair. Preeclampsia without signs or symptoms of severe preeclampsia. Patient's blood pressures have been occasionally elevated but not in the severe range. Otherwise blood pressures have been normal. Plan: Check CBC and CMP in the morning Continue to follow blood pressures Observe patient for possible discharge tomorrow If patient's blood pressures remain elevated constantly or continuously, would consider antihypertensive but currently blood pressures are intermittently elevated and I would not place patient on the antihypertensive. We'll continue to observe.
[2017-03-13 06:12] VITALS: RESP 16
[2017-03-13 06:25] LABS: HEMATOCRIT 36.8 % (37.0-47.0); HEMOGLOBIN 12.4 g/dL (12.0-16.0); MEAN CORPUSCULAR HEMOGLOBIN 31.9 PG (27-31); MEAN CORPUSCULAR HGB CONC 33.7 g/dL (33-37); MEAN CORPUSCULAR VOLUME 94.6 FL (81-99); RED BLOOD COUNT 3.89 10^6/uL (4.20-5.40)
[2017-03-13 06:26] LABS: MEAN PLATELET VOLUME 11.3 FL (7.4-12.2)
[2017-03-13 06:30] LABS: BLOOD UREA NITROGEN 11 mg/dL (7-22); BUN/CREATININE RATIO 18.33 (6-20); CALCIUM 9.2 mg/dL (8.7-10.7); EST GLOMERULAR FILTRATION > 60 (>60 ml/min/1.73m(2)); SERUM ALBUMIN 2.9 g/dL (3.5-4.8); URIC ACID 6.2 mg/dl (2.5-6.2)
[2017-03-13] MEDS: IBUPROFEN 800 MG TABLET PO PRN (07:40)
[2017-03-13] MEDS: DOCUSATE 100 MG CAPSULE PO SCH (08:28)
[2017-03-13 08:29] VITALS: TEMP 98.7
[2017-03-13] MEDS ORDERED: Prenatal Multivitamin Tab 1 TAB TAB PO SCH (09:00)
--- NOTE | 2017-03-13 09:56 | OB.PROGRES ---
Subjective Post Day: 2 Pain Management: PO Smith Catheter: No Flatus: Yes Diet: Regular [place] Feeding Method: Exculsively Ambulating: Yes Concerns / Additional Information: The patient is feeling well. No headaches and no right upper quadrant pain. Breast-feeding. The patient is bleeding a small amount. Patient desires to go home. Objective - General General Appearance: POSITIVE: No Acute Distress, Cooperative - Cardiovacular Cardiovascular Exam: POSITIVE: RRR Edema: No Pedal Edema (To trace edema bilaterally) Extremities: Negative Adelaida's - Bilaterally - Respiratory Respiratory Exam: POSITIVE: Clear to Auscultation - Bilaterally - Fundus/Lochia/Perineum Uterus Consistency: Firm Assesstment / Plan Assessment / Plan: Assessment: day #2 status post spontaneous vaginal delivery over medial lateral episiotomy. Patient was induced for preeclampsia without signs or symptoms of severe preeclampsia. Labs this morning showed an H&H of 12 and 36 with normal platelets and renal function and liver function tests were normal. Blood pressures have been normal. Occasional elevated blood pressure but the majority of blood pressures have been normal. Patient is asymptomatic without headache or right upper quadrant pain. Plan: Discharge home today Follow-up with blood pressure check in 1-2 days when the baby is seen next. Ibuprofen 800 mg 1 tablet 3 times a day with food or milk 5 days then as needed Colace 100 mg capsule 1 capsule daily to twice a day when necessary constipation The patient should continue a vitamin of any type daily The patient may contact the spa consultant at any time with regards to breast feeding questions or issues The patient should do sits baths at least 2 times a day for 10-15 minutes and then gently dry her perineum with a political science chair on cool or warm. The patient should follow-up with a blood pressure check at any time the baby is seen in the next couple weeks. This is to ensure that the patient's blood pressures are not increasing. Patient should follow-up with me in about 6 weeks for a checkup. Sooner as needed. The usual instructions will be given to the patient.
== END 2017-03-13 13:58 | disposition home or self-care (01) | DRG 774 ==
LOC: OBOP 10:15 → OBIP 12:39
PROVIDERS: ADMIT Obstetrics & Gynecology; ATTEND Obstetrics & Gynecology
PROC: 0W8NXZZ Division of Female Perineum, External Approach (ICD-10-PCS; principal; 2017-03-11)
PROC: 10E0XZZ Delivery of Products of Conception, External Approach (ICD-10-PCS; 2017-03-11)
DX: O14.93 Unspecified pre-eclampsia, third trimester (principal); Z3A.37 37 weeks gestation of pregnancy; Z37.0 Single live birth
CPT/HCPCS: 36415; 80053; 83615; 84550; 85025; 85027; 86850; 86900; 86901; J1885; J2405; J7030; J7120; Q0177